=== PATIENT | female | born 2000 | race American Indian/Alaskan Native ===

== ENCOUNTER 2022-07-14 03:42 | Emergency (ER) | payer MEDICAID ==
[2022-07-14 04:21] LABS: Basophils # (Auto) 0.1 K/mm3 (0.0-0.1); Basophils % (Auto) 0.8 % (0.0-1.8); Eosinophils % (Auto) 0.4 % (0.0-4.3); Hematocrit 37.1 % (30.3-42.9); Hemoglobin 12.8 gm/dl (10.1-14.3); Lymphocytes % (Auto) 24.8 % (13.4-35.0); Mean Corpuscular HGB Conc 35 % (30-34); Mean Corpuscular Volume 81 fl (79-97); Monocytes # (Auto) 0.5 K/mm3 (0.0-0.8); Monocytes % (Auto) 6.1 % (0.0-7.3); Platelet Count 399 K/mm3 (140-440); Red Blood Count 4.59 M/mm3 (3.65-5.03); Red Cell Distribution Width 14.1 % (13.2-15.2)
--- NOTE | 2022-07-14 04:21 | XRay Report ---
ABDOMEN 3 VIEW(S) INDICATION: Abdominal Pain. COMPARISON: None available. FINDINGS: Bowel gas pattern: No significant abnormality. Free air: None seen. Stones: None seen. Chest: No acute findings. Additional Findings: No additional significant findings. IMPRESSION: 1. No acute findings. Signer Name: Adama Haywood MD Signed: 07/14/2022 4:17 AM Workstation Name: [id number]
[2022-07-14 04:29] LABS: Blood Urea Nitrogen 14 mg/dL (7-17); Calcium 9.2 mg/dL (8.4-10.2); Hemolysis Index 5
[2022-07-14 04:38] LABS: BUN/Creatinine Ratio 23
--- NOTE | 2022-07-16 16:47 | Electrocardiograph Report ---
[facility] Test Date: 2022-07-14 Test Time: 03:51:44 Pat Name: PANKAJ VALDEZ Department: Room: Gender: F Court Assistant: GASTON : 2000 Requested By: DAWSON DE LA FUENTE Order Number: [id number] Reading MD: Iesha Mensah Measurements Intervals [place] Rate: 113 P: 46 CA: 152 QRS: 55 QRSD: 81 T: -38 QT: 360 QTc: 494 Interpretive Statements Sinus tachycardia Probable left atrial enlargement No previous ECG available for comparison Electronically Signed On 07-16-2022 16:47:08 EDT by Iesha Mensah
== END 2022-07-14 06:37 | disposition left against medical advice (07) ==
LOC: ED 03:42
DX: R10.9 Unspecified abdominal pain (principal); R06.02 Shortness of breath; Z53.21 Procedure and treatment not carried out due to patient leaving prior to being seen by health care provider
CPT/HCPCS: 36415; 74022; 80048; 84484; 84703; 85025; 93005